=== PATIENT | male | born 1985 | race Caucasian/White ===

== ENCOUNTER 2016-07-14 06:24 | Emergency (ER) | payer OTHER ==
[2016-07-14 06:47] VITALS: BP 145/87; PULSE 83; RESP 16; TEMP 97.9; O2SAT 94
--- NOTE | 2016-07-14 07:15 | EDPHY ---
H & P Time Seen by Provider: 07/14/16 06:55 HPI/ROS: CHIEF COMPLAINT: Neck swelling. HISTORY OF PRESENT ILLNESS: The patient is a 31-year-old male who presents after popping a pimple behind his right earlobe yesterday. He was able to express pus. This morning he noticed erythema and swelling behind his ear and posterior cheek. He admits mild difficulty swallowing due to the pressure. No fever, chills, chest pain, shortness of breath, palpitations, vomiting, diarrhea , urinary complaints, headache, lightheadedness. REVIEW OF SYSTEMS: Aside from elements discussed in the HPI, a comprehensive 10-point review of systems was reviewed and is negative. PAST MEDICAL HISTORY: Denies. SOCIAL HISTORY: Smoker, here alone. VITAL SIGNS Reviewed by me. GENERAL: Well-developed, well-nourished, resting comfortably in no respiratory distress. HEENT: Atraumatic. Eyes: No icterus, no injection. Right and left ears both occluded by cerumen. Mouth: moist mucous membranes. Mildly swollen right tonsil. No erythema or lesions. No exudates. No trismus. Neck: 5x4cm erythematous area just beneath ear and extending over angle of jaw, with palpable tender submandibular node. No fluctuance. Supple, FROM, no meningismus. LUNGS: Clear to auscultation bilaterally, no wheezes, rhonchi or rales. CARDIAC: Regular rate and rhythm, no rubs, murmurs or gallops. ABDOMEN: Soft, nontender, nondistended, bowel sounds normal. BACK: No CVA tenderness. EXTREMITIES: No trauma. No edema. Range of motion is normal throughout. NEURO: Alert and oriented, grossly nonfocal. SKIN: Warm and dry, no rash. PSYCHIATRIC: Normal mentation, no agitation. Portions of this note were transcribed by a expert medical writer. I, Dr Stella Diaz , personally performed a history, physical exam, medical decision making, and confirmed the accuracy of the information in the transcribed note. Smoking Status: Current every day smoker Constitutional: Initial Vital Signs Temperature (C) 36.6 C 07/14/16 06:44 Heart Rate 83 07/14/16 06:44 Respiratory Rate 16 07/14/16 06:44 Blood Pressure 145/87 H 07/14/16 06:44 O2 Sat (%) 94 07/14/16 06:44 O2 Delivery Mode Room Air Allergies/Adverse Reactions: cefaclor [From Ceclor] Allergy (Verified 07/14/16 06:43) Home Medications: Medication Instructions Recorded Clindamycin HCl [Clindamycin] 300 mg PO TID #30 cap 07/14/16 Medical Decision Making ED Course/Re-evaluation: Suspect cellulitis with inflamed adenitis in area just beneath pustule which was popped. No evidence of airway compromise. No deep space abscess evident. Do not believe patient needs further imaging studies. 0733: Consulted with Dr. Elkins, ENT. Will start on clindamycin and close follow up. Differential Diagnosis: Diff dx considered included abscess, adenitis, cellulitis, deep space abscess, MRSA, MSSA. Departure - Departure Disposition: Home, Routine, Self-Care Clinical Impression: Adenitis Cellulitis Qualifiers: Site of cellulitis: head Qualified Code(s): L03.811 - Cellulitis of head [any part, except face] Condition: Good Instructions: Cellulitis (ED), Adenitis (ED) Additional Instructions: Take Clindamycin as prescribed. I recommend Ibuprofen (Motrin, Advil) or Naproxen Sodium (Aleve) for pain and anti-inflammatory effects. You may take either one, but do not take both. Your dose is: Ibuprofen 600 mg every 6-8 hours with food. OR Naproxen Sodium (Aleve) 220 mg every [address] Elkins, ENT, today to set up a follow up appointment for . Return to the emergency department or follow up with Dr. Elkins earlier if you experience fever, difficulty swallowing or breathing, or other serious worsening of condition. Referrals: Dominique Elkins MD [Medical Doctor] - As per Instructions Prescriptions: AZITHROMYCIN [Z-PACK] 250 - 500 mg PO DAILY #6 tab Clindamycin HCl [Clindamycin] 300 mg PO TID #30 cap Report Scribed for: Stella Diaz Report Scribed by: Gus Larose Date of Report: 07/14/16 Time of Report: 07:20
== END 2016-07-14 07:55 | disposition home or self-care (01) ==
DX: L03.811 Cellulitis of head [any part, except face] (principal); F17.200 Nicotine dependence, unspecified, uncomplicated; I88.9 Nonspecific lymphadenitis, unspecified